=== PATIENT | male | born 1960 | race Caucasian/White ===

== ENCOUNTER → 2022-04-08 13:13 | Outpatient (CLI) | payer OTHER, MEDICARE, SELFPAY ==
--- NOTE | ~2022-04-08 | MR_ITS ---
EXAMINATION: MR thoracic spine wo con, MR cervical spine wo con DATE: 04/08/2022 14:01 INDICATION: Neck and back pain TECHNIQUE: 1. Magnetic resonance imaging (MRI) of the cervical spine was performed without intravenous contrast. Sequences included sagittal T2-weighted FSE, sagittal T2-weighted FS FSE, sagittal T1-weighted FSE, axial MERGE and axial T2-weighted FSE. 2. MRI of the thoracic spine was performed without intravenous contrast. Sagittal localizer T1-weight ed FSE of the cervicothoracic spine was obtained. Thoracic spine sequences included sagittal T2-weigh charanjit FSE, sagittal T1-weighted SE, Sagittal T2-weighted FS FSE, and axial T2-weighted FSE. COMPARISON: None FINDINGS: Cervical spine: C5-C6 anterior spinal fusion with anterior plate and screw fixation. Bone alignment is normal. Verte bral body heights are normal. Bone marrow signal intensity is normal. The unfused intervertebral dis c heights are normal. There are annular fissures at C3-C4 and C6-C7. Cord signal intensity is normal. Cervical soft tissues are unremarkable. The following disc levels are specifically discussed: C2-C3: The disc does not extend beyond the endplate margin. There is no uncovertebral joint osteoarth ritis. There is mild right facet joint osteoarthritis. There is no neural foraminal stenosis. There i s no central canal stenosis. C3-C4: Annular fissure and small central disc extrusion with disc material extending a few millimeter s cephalad and caudal to the level of the plates. There is mild bilateral uncovertebral joint osteoar thritis. There is mild bilateral facet joint osteoarthritis. There is mild bilateral neural foraminal stenosis. There is mild central canal stenosis. C4-C5: The disc does not extend beyond the endplate margin. There is mild left and moderate right unc overtebral joint osteoarthritis. There is mild right and moderate left facet joint osteoarthritis. Th ere is mild right neural foraminal stenosis. There is no central canal stenosis. C5-C6: The disc space is fused. There is mild bilateral facet joint osteoarthritis. There is moderate to severe right and mild to moderate left neural foraminal stenosis. There is no central canal steno sis. C6-C7: Annular fissure and small central disc extrusion with disc material extending 3 mm cephalad to the level of the inferior endplate of C6. There is mild left and moderate right uncovertebral joint osteoarthritis. There is mild left and moderate right facet joint osteoarthritis. There is mild bilat eral neural foraminal stenosis. There is no central canal stenosis. C7-T1: The disc does not extend beyond the endplate margin. There is no uncovertebral joint osteoarth ritis. There is mild bilateral facet joint osteoarthritis. There is no neural foraminal stenosis. The re is no central canal stenosis. Thoracic spine: Alignment is normal. Chronic mild central superior endplate compression fracture at T5 without marrow edema. A few scattered T1 hyperintense hemangiomas, the largest and T6. Mild disc desiccation and mi ld disc height loss at T2-T3 through T10-T11. Small left paracentral disc protrusion at T2-T3, annula r fissure and small right paracentral disc protrusion at T3-T4, annular fissure and small left parace ntral disc protrusion at T5-T6 which indents the left ventral surface of the cord. Left paracentral d isc protrusion at T7-T8 which also indents the left ventral surface of the cord. Mild right paracentr al disc protrusion at T10-T11. Aside from the localized mass effect upon the cord at T5-T6 and T7-T8 21 there is no significant central canal stenosis in the thoracic spine. There is multilevel mild to moderate bilateral thoracic facet osteoarthritis most prominent in the lower thoracic spine. This con tributes to mild neural foraminal stenosis on the left at T1-T2, T2-T3 and T10-T11 and on the right a t T1-T2, T8-T9 10 and T10-T1
== END ==
PROVIDERS: PCP Neurological Surgery; Visit Provider Neurological Surgery
DX: M47.892 Other spondylosis, cervical region (principal); Z98.890 Other specified postprocedural states; M47.894 Other spondylosis, thoracic region; Z98.1 Arthrodesis status
CPT/HCPCS: 72141; 72146

== ENCOUNTER → 2022-06-22 11:52 | Outpatient (CLI) | payer OTHER, MEDICARE, SELFPAY ==
--- NOTE | ~2022-06-22 | MR_ITS ---
MRI of the lumbar spine Clinical History: Back pain Technique: Axial T2-weighted images, and sagittal T1-weighted, T2-weighted, and T2 fat-sat images wer e acquired. Findings: There is no fracture or subluxation of lumbar spine. Vertebral bodies maintain normal heigh t and alignment. No bone marrow signal abnormality seen. At L1-L2, there is no disc bulge or herniation. There is minimal facet arthropathy. No spinal canal s tenosis or neural foraminal narrowing. At L2-L3, there is mild disc bulge and mild facet arthropathy. No zahra spinal canal stenosis. No [place] ral foraminal narrowing. At L3-L4, there is minimal disc bulge and mild facet arthropathy. No spinal canal stenosis or neural foraminal narrowing. At L4-L5, there is mild disc bulge and mild facet arthropathy. No spinal canal stenosis. There is sev ere bilateral neural foraminal compromise. At L5-S1, there is no disc bulge or herniation. There is mild facet joint degenerative change. No spi nal canal stenosis or neural foraminal narrowing. Paravertebral soft tissues are unremarkable. Impression: Severe bilateral neural foraminal narrowing at L4-L5. Additional minimal degenerative changes, as above. Reviewed, dictated and finalized at location . PACKER Impression: Severe bilateral neural foraminal narrowing at L4-L5. Additional minimal degenerative changes, as above.
--- NOTE | ~2022-06-22 | CT_ITS ---
EXAMINATION: CT cervical spine wo con DATE: 06/22/2022 12:50 INDICATION: Spondylosis of cervical spine. Neck pain. TECHNIQUE: Computed tomography (CT) of the cervical spine was performed without intravenous contrast. Automated exposure control and iterative reconstruction technique were employed. The dose-length pro duct was 320.46 mGy-cm. COMPARISON: MRI cervical spine 04/08/2022 FINDINGS: There is mild emphysema. There is mild scarring at the lung apices. Bone alignment is candace l. Vertebral body heights are normal. There are changes of anterior fusion procedure at C5-C6 with he aled interbody bone graft and anterior plate and screws. Vertebral body heights are normal. There is mildly decreased disc height at C3-C4. The following disc levels are specifically discussed: C2-C3: There is mild bilateral uncovertebral joint osteoarthritis. There is mild bilateral facet join t osteoarthritis. There is no neural foraminal stenosis. There is no central canal stenosis. C3-C4: There is moderate bilateral uncovertebral joint osteoarthritis. There is mild bilateral facet joint osteoarthritis. There is mild bilateral neural foraminal stenosis. There is mild central canal stenosis. C4-C5: There is no uncovertebral joint osteoarthritis. There is mild left facet joint osteoarthritis. There is no neural foraminal stenosis. There is no central canal stenosis. C5-C6: There is severe bilateral uncovertebral joint hypertrophy. There is mild bilateral facet joint osteoarthritis. There is moderate right and mild left neural foraminal stenosis. There is no central canal stenosis. C6-C7: There is no uncovertebral joint osteoarthritis. There is mild right and moderate left facet jacques int osteoarthritis. There is mild left neural foraminal stenosis. There is no central canal stenosis. C7-T1: There is no uncovertebral joint osteoarthritis. There is mild right and moderate left facet jacques int osteoarthritis. There is no neural foraminal stenosis. There is no central canal stenosis. IMPRESSION: 1. Mild cervical spondylosis. 2. Anterior fusion procedure at C5-C6. Reviewed, dictated and finalized at location A. ERY PAIRER
== END ==
PROVIDERS: PCP Family Medicine; Visit Provider Neurological Surgery
DX: M47.812 Spondylosis without myelopathy or radiculopathy, cervical region (principal); M48.061 Spinal stenosis, lumbar region without neurogenic claudication; R27.0 Ataxia, unspecified; Z98.1 Arthrodesis status
CPT/HCPCS: 72125; 72148

== ENCOUNTER 2022-08-25 00:16 | Day surgery (SDC) | payer OTHER, MEDICARE, SELFPAY ==
--- NOTE | 2022-08-11 14:06 | SUR.PREOP ---
Report to the Outpatient Waiting Room, entrance under the green pavilion located off [address] [facility], at time 0730 on date 08/25/2022. Planned Procedure Time: 0930. Time changes happen often and if your time is changed the preop area will call you the afternoon before. - You and your visitor will be asked to self-screen and do not enter if you have any COVID symptoms. - Only one visitor is requested with a max of two and NO children visitors are allowed at this time. - The patient visitor may be requested to leave or wait in car when not with patient due to distancing restrictions. - A mask is optional within the hospital at this time. Patients may have clear liquids (water, carbonated beverages, clear teas, apple juice) until 3 hours prior to surgery with a maximum of 20 ounces. - No food from midnight until time of surgery - Infants may have breast milk until 4 hours before surgery, infant formula 6 hours prior to surgery. - Children will be allowed to drink immediately following surgery. If applicable, please bring a bottle or sippy cup to assist with drinking. Juice, water, soda, and popsicles are readily available. For infants on formula, please bring formula the day of surgery. Pacifiers are allowed. Take the following medications with a SIP of water the morning of surgery: DEXTROAMPHETAMINE-AMPHETAMINE, NUCYNTA, AND BRING ALBUTERAL INHAILER DO NOT STOP ANY OF YOUR OTHER PRESCRIPTION MEDICATIONS PRIOR TO SURGERY ?EXCEPT THE FOLLOWING Medications to discontinue per physician STOP ALL VITAMINS AND SUPPLIMENTS 3 DAYS PRIOR TO PROCEDURE Date to take last dose 07/25/2022 Please no make-up, nail bengali, hairspray, perfume, deodorant, or body powder the day of surgery. No jewelry (including any body piercings) or valuables the day of surgery, leave them at home. Please take a shower or bath the night before, or the morning of, surgery with an antibacterial soap. Wear comfortable, loose fitting clothing. Children are encouraged to wear pajamas. - Jewelry must be removed prior to entering the operating room. Rings and piercings that are not removed may be cut off. - The hospital will not accept responsibility for valuables. - Please leave all valuables, including medications, at home the day of surgery. If you are going home after surgery, a licensed trash truck driver must drive you home. - NO public transportation without another adult if you receive anesthesia. - We recommend that an adult stay with you for 24 hours following discharge. - We also recommend that you do not drive, make important decision, drink alcoholic beverages, or take any drugs that were not prescribed by your health care provider for at least 24 hours after your discharge time. For Pediatric surgeries, we recommend two adults accompany the child home. Follow any additional instructions given to you from your surgeon. If you or anyone in your household have experienced Covid symptoms in the past week, please notify your surgeon or the nurse liaison at the phone number below for possible testing. Telephone instructions given to KIKI ALVARADO and asked if any additional questions and then verbalized understanding. Patient advised to call surgeon office or pre surgery nurse liaison [phone] if any additional questions.
[2022-08-11 14:09] VITALS: BMI 28.0
[2022-08-25] VITALS (10 sets, daily range): BP systolic 128–157; BP diastolic 70–91; PULSE 70–109; RESP 10–20; TEMP 36.6–36.7; O2SAT 97–100
--- NOTE | ~2022-08-25 | XR_ITS ---
EXAMINATION: XR fluoroscopy no charge DATE: 08/25/2022 11:34 INDICATION: Lumbar foraminotomy TECHNIQUE: 3 fluoroscopic images of the lower lumbar spine were and lateral projection obtained caio chavez procedure performed by Dr. Mae. Radiologist was not present for the imaging or procedure. The amount of fluoroscopy time used during this procedure was 0.1 minutes. COMPARISON: None. FINDINGS: Images demonstrate likely tissue retractors and lap sponge projects over a lucent soft tissue surgica l bed posterior to the lumbar spine at L4-L5. Metallic probe projects over the caudal and cephalad ma rgins of the L4 and L5 pedicles respectively. Mild lumbar spondylosis. IMPRESSION: 1. Fluoroscopy utilized during neurosurgical procedure at the posterior lower lumbar spine. See proce dure note for further detail. Reviewed, dictated and finalized at location A. IMPRESSION: 1. Fluoroscopy utilized during neurosurgical procedure at the posterior lower l umbar spine. See procedure note for further detail.
[2022-08-25] MEDS: LACTATED RINGERS 1,000 ML 30 ML IV CONT ×2 (08:35→12:01)
[2022-08-25] MEDS: HYDROmorphone HCL INJ (*CRX) 1 MG/ML SYR IV PUSH (08:35)
--- NOTE | 2022-08-25 08:42 | WPDANESEPPF ---
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 Patient Data Age: 62 Gender: M Height: 1.85 m Weight: 96.8 kg Last Vital Signs Temp 36.7 C 08/25/22 07:41 Pulse 76 08/25/22 07:41 Resp 16 08/25/22 07:41 BP 128/91 H 08/25/22 07:41 Pulse Ox 99 08/25/22 07:41 O2 Del Method Room Air 08/25/22 07:41 Allergies Allergy/AdvReac Type Severity Reaction Status Date / Time adhesive Allergy Unknown Rash Verified 08/25/22 07:27 carbamazepine Allergy Unknown Swelling Verified 08/25/22 07:27 meperidine Allergy Unknown Nausea Verified 08/25/22 07:27 pneumococcal vaccine Allergy Unknown Rash Verified 08/25/22 07:27 Home Medications Medication Instructions Recorded Confirmed Type celecoxib 100 mg capsule (Celebrex) 100 mg PO BID 12/27/21 08/25/22 History fluticasone propionate 50 1 spray intranasal DAILY 12/27/21 08/25/22 History mcg/actuation nasal spray,suspension sumatriptan 5 mg/actuation nasal 5 mg intranasal Q2-4H PRN Headache 12/27/21 08/11/22 History spray trazodone 50 mg tablet 50 mg PO QHS PRN Pain 12/27/21 08/25/22 History Vitamin D (with calcium) 1 cap PO WEEKLY 08/11/22 08/25/22 History Zyrtec 1 mg PO DAILY 08/11/22 08/25/22 History albuterol sulfate 90 mcg/actuation 1 puff inhalation DAILY 08/11/22 08/11/22 History aerosol inhaler dextroamphetamine-amphetamine ER 10 mg PO DAILY 08/11/22 08/25/22 History 10 mg 24hr capsule,extend release tapentadol 100 mg tablet (Nucynta) 150 mg PO DAILY 08/11/22 08/25/22 History tizanidine 4 mg tablet 4 mg PO DAILY 08/11/22 08/25/22 History Patient hx anesthesia problems: none Family hx anesthesia problems: none Results Review: All pre-operative results and documents have been reviewed as part of the pre-operative evaluation. [facility] Past Medical History Medical History Asthma Collapsed lung Depression FH: cholecystectomy GERD (gastroesophageal reflux disease) Hypertension Joint disease Kidney stones Surgical History Surgical History H/O cervical spine surgery H/O exploratory laparotomy H/O sinus surgery History of appendectomy History of orthopedic surgery History of shoulder surgery Family History Family History Other Diabetes mellitus Heart disease Hypertension Social History Social History Smoking packs per day: 2 Smoking cigarettes per day: 40.0 Years smoked: 20 Smoking pack-years: 40.00 Smoking status: Former smoker Smoking end date: 06/05/96 Alcohol intake: unknown Substance use: never Substance use type: does not use Living arrangements: with family Spiritual care concerns: No Anes - Eval Final PreProcedure Day of Procedure 08/25/22 08:42 Patient weight: overweight Heart: regular rate and rhythm Lungs: clear to auscultation Airway: Mallampati scale class 1 Neurological: alert and oriented Last oral intake: >/= 8 hours ASA classification: III Emergent: no Anesthetic plan: proceed Anesthesia type and monitoring: general ETT and standard monitoring Results Review: All pre-operative results and documents have been reviewed as part of the pre-operative evaluation. Informed Consent: The patient's anesthetic plan and its attendant risks and benefits were discussed with the patient/family/POA. Questions were solicited and answers provided to the satisfaction of the patient/family/POA.
--- NOTE | 2022-08-25 09:11 | PM.IMHP ---
H&P: HPI History of Present Illness Date/Time: 08/25/22 09:11 Chief Complaint: Amilcar 62-year-old gentleman with back and bilateral lower extremity discomfort presents now for bilateral L4-5 far lateral foraminotomies. He does not have any new issues since we last saw him. He is not having bowel or bladder difficulty. He has occasional dermatomal numbness. He is not having any specific muscle group weakness. Review of Systems Review of Systems: Patient denies shortness of breath, cough, fever, chills, nausea, vomiting, weight loss, weight gain, chest pain, dysuria. He has back and leg pain as above. His review of systems otherwise negative on 12 systems except as noted elsewhere. [facility] Past Medical History Medical History Asthma Collapsed lung Depression FH: cholecystectomy GERD (gastroesophageal reflux disease) Hypertension Joint disease Kidney stones Surgical History Surgical History H/O cervical spine surgery H/O exploratory laparotomy H/O sinus surgery History of appendectomy History of orthopedic surgery History of shoulder surgery Family History Family History Other Diabetes mellitus Heart disease Hypertension Social History Social History Smoking packs per day: 2 Smoking cigarettes per day: 40.0 Years smoked: 20 Smoking pack-years: 40.00 Smoking status: Former smoker Smoking end date: 06/05/96 Alcohol intake: unknown Substance use: never Substance use type: does not use Living arrangements: with family Spiritual care concerns: No Meds Home Medications and Allergies Home Medications Medication Instructions Recorded Confirmed Type celecoxib 100 mg capsule (Celebrex) 100 mg PO BID 12/27/21 08/25/22 History fluticasone propionate 50 1 spray intranasal DAILY 12/27/21 08/25/22 History mcg/actuation nasal spray,suspension sumatriptan 5 mg/actuation nasal 5 mg intranasal Q2-4H PRN Headache 12/27/21 08/11/22 History spray trazodone 50 mg tablet 50 mg PO QHS PRN Pain 12/27/21 08/25/22 History Vitamin D (with calcium) 1 cap PO WEEKLY 08/11/22 08/25/22 History Zyrtec 1 mg PO DAILY 08/11/22 08/25/22 History albuterol sulfate 90 mcg/actuation 1 puff inhalation DAILY 08/11/22 08/11/22 History aerosol inhaler dextroamphetamine-amphetamine ER 10 mg PO DAILY 08/11/22 08/25/22 History 10 mg 24hr capsule,extend release tapentadol 100 mg tablet (Nucynta) 150 mg PO DAILY 08/11/22 08/25/22 History tizanidine 4 mg tablet 4 mg PO DAILY 08/11/22 08/25/22 History Allergies Allergy/AdvReac Type Severity Reaction Status Date / Time adhesive Allergy Unknown Rash Verified 08/25/22 07:27 carbamazepine Allergy Unknown Swelling Verified 08/25/22 07:27 meperidine Allergy Unknown Nausea Verified 08/25/22 07:27 pneumococcal vaccine Allergy Unknown Rash Verified 08/25/22 07:27 Vital Signs Vital Signs - 24 hr 08/25/22 07:41 Temperature 98.1 F Pulse Rate 76 Respiratory Rate 16 Blood Pressure 128/91 H Pulse Oximetry 99 Oxygen Delivery Room Air Exam Narrative: Strength is normal the bilateral lower extremities to direct confrontation. Sensation is intact to light touch throughout the lower extremities. Breathing is unlabored. He speaks in complete sentences without difficulty. Regular rate and rhythm Assessment and Plan Assessment and plan (1) Neural foraminal stenosis of lumbar spine: Code(s): M48.061 - Spinal stenosis, lumbar region without neurogenic claudication Status: Acute (2) Lumbar spondylosis: Code(s): M47.816 - Spondylosis without myelopathy or radiculopathy, lumbar region Status: Acute Plan Jose is a 62-year-old gentleman with back and leg pain that presents for bilateral L4-5
--- NOTE | 2022-08-25 09:15 | WPDHPUPDATE1 ---
History and Physical Update Update Date/Time: 08/25/22 09:15 History and Physical has been reviewed, including an updated exam of the patient. There are NO changes in the patient's condition. Risks, benefits, and alternatives have been discussed and questions answered. Patient agrees to proceed with procedure.
[2022-08-25] MEDS: ceFAZolin 2 GM/D5W 50 ML 2 GM/50 ML BAG IVPB (09:46)
[2022-08-25] MEDS: LIDO 1%/EPINEPHRINE 1:100,000 50 ML VIAL 10 ML INFILTRATE (10:25)
--- NOTE | 2022-08-25 11:22 | P.OP_ITS ---
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 He was then turned into the prone position on a Tyler frame. Area of operation on his back was examined, marked for incision, prepped and draped in routine sterile fashion. Incision was marked over the L4 and L5 spinous processes in the midl ine. This area was injected with 0.5% lidocaine with [id number] epinephrine. Intravenous antibiotics given prior to incision. Incision was made with a 10 blade scalpel down to lumbodorsal fascia. A subperiosteal dissection of the muscle and soft tissue away from spinous process and lamina bilaterally at L4-5 was performed with a subperiosteal elevator and Bovie cautery. A verifying x-ray was obtained on each side to perform confirm level of operation. Midas-Remington drill was then used to perform a resection of the lateral pars and facet to the soft contents the foramen was encountered. This was done identically on each level as was the decompression in the foramen. Under microscopy the yellow ligament was lifted and removed piecemeal using Kerrison punches. the ligament was entered using 11 blade scalpel after the nerve root was reflected superiorly. Curved curette, Bui rongeur and Kim curette were used to push free and removed fragments of hard and soft disc from beneath the nerve bilaterally. These maneuvers were performed until a nerve hook could be placed above and below the nerve both proximally and distally to confirm lack of compression. The wound was then copiously irrigated with bacitracin irrigation all bleeding stopped with bipolar and Bovie cautery and Gelfoam thrombin powder. The was then closed in layered fashion with 2-0 Vicryl interrupted sutures in the lumbodorsal fascia and Leeann's layer. 3-0 Vicryl buried interrupted sutures were placed in the dermis and the skin was closed with a running 4-0 Monocryl subcuticular stitch and dressed with Dermabond. The patient was allowed wake up in the operating room and was taken to the recovery room in stable condition. There were no immediate complications of this operation. All counts were reported correct in the case. Blood loss was 25 cc. The patient was neurologically at his baseline postoperatively. CPT code: 55510 x 2 Estimated Blood Loss 25 IV Fluids 1,000 Complications None Condition Stable Disposition PACU [facility] Billing Surgery - Charge Forward: Surgery Billing
[2022-08-25] MEDS: HYDROmorphone HCL INJ (*CRX) 1 MG/ML SYR 0.25 MG IV PUSH ×8 (11:55→12:34)
[2022-08-25] MEDS: oxyCODONE/ACETAMINOPHEN (*CRX) 5-325 MG TABLET 1 TABLET PO (13:14)
[2022-08-25] MEDS: oxyCODONE HCL (*CRX) 5 MG TAB IR PO (13:14)
== END 2022-08-25 14:09 | disposition home or self-care (01) ==
PROVIDERS: PCP Family Medicine; Visit Provider Neurological Surgery
PROC: (CPT 63005; principal; 2022-08-25 09:30)
DX: M48.061 Spinal stenosis, lumbar region without neurogenic claudication (principal); M47.816 Spondylosis without myelopathy or radiculopathy, lumbar region; I10 Essential (primary) hypertension; K21.9 Gastro-esophageal reflux disease without esophagitis; J45.909 Unspecified asthma, uncomplicated; F32.A Depression, unspecified; Z87.891 Personal history of nicotine dependence; Z79.51 Long term (current) use of inhaled steroids
CPT/HCPCS: 63056; 36415; 86850; 86900; 86901; 99199; A9270; J0330; J0690; J1100; J1170; J1200; J2250; J2270; J2370; J2405; J2704; J3010; J7120